=== PATIENT | female | born 1950 | race Caucasian/White ===

== ENCOUNTER 2023-10-29 12:45 | Emergency (ER) | payer MEDICARE, SELFPAY ==
--- NOTE | ~2023-10-29 | XR_ITS ---
Right foot Technique: AP, oblique, and lateral views were obtained. Clinical History: First digit swelling Findings: No acute fracture or dislocation is seen. There is moderate degenerative change of the firs t MTP joint. No erosive change evident. Soft tissues are unremarkable. Impression: Moderate osteoarthritis of the first MTP joint. Reviewed, dictated and finalized at location . Impression: Moderate osteoarthritis of the first MTP joint.
[2023-10-29 12:47] VITALS: BP 128/71; PULSE 93; RESP 18; TEMP 36.2; O2SAT 99
--- NOTE | 2023-10-29 13:02 | ED.EXTPRO ---
HPI - Extremity Problem General Chief complaint: Extremity Problem,Nontraumatic <Padmini Hagen PA-C - Last Filed: 10/29/23 14:11> Stated complaint: right foot swelling and pain <GRETA Leo Last Filed: 10/29/23 14:11> Time Seen by Provider: 10/29/23 12:54 <GRETA Leo Last Filed: 10/29/23 14:11> History of Present Illness HPI Narrative: 73 y/o F with PMHx of hypertension presents to the emergency department for pain and redness to her right foot for 2 days. The tenderness and redness is overlying the dorsum of the foot along the 1st MTP that extends proximally and laterally. Patient states approximately 1 week prior to her symptom onset she stubbed her right great toe. Otherwise she denies any trauma or injury. She denies fever, nausea vomiting, history of gout. She does report a remote injury to the right foot near this area that required surgery many years ago. <Padmini Hagen PA-C - Last Filed: 10/29/23 14:11> Related Data Allergies/Adverse reactions: Allergies Allergy/AdvReac Type Severity Reaction Status Date / Time No Known Allergies Allergy Mild Unverified 12/26/08 17:59 poison sheila extract Allergy Unknown Skin Verified 06/18/17 21:20 Reaction <Padmini Hagen PA-C - Last Filed: 10/29/23 14:11> Review of Systems Review of Systems: CONSTITUTIONAL: Denies fever, chills, or sweats. EYES: Denies visual changes, redness, or discharge. ENT: Denies rhinorrhea, congestion, sore throat, or otalgia. CARDIOVASCULAR: Denies chest pain, palpitations, or edema. RESPIRATORY: Denies cough or dyspnea. GASTROINTESTINAL: Denies abdominal pain, nausea, vomiting, or diarrhea. GENITOURINARY: Denies dysuria or hematuria. SKIN: Denies rash or itching. MUSCULOSKELETAL: See HPI NEUROLOGIC: Denies headache, numbness, or weakness. PSYCHIATRIC: Denies anxiety or depression. <GRETA Leo Last Filed: 10/29/23 14:11> [facility] Social History Social History: Social History Smoking status: Never smoker Second hand tobacco smoke exposure: Yes Alcohol intake: current <Padmini Hagen PA-C - Last Filed: 10/29/23 14:11> Exam Narrative: GENERAL: Well-appearing, well-nourished, and in no acute distress. HEAD: Normocephalic, atraumatic. EYES: PERRLA and EOMI. ENT: Nares clear, no rhinorrhea or epistaxis. Mucous membranes moist. NECK: Supple. CHEST: Clear to auscultation. No respiratory distress. HEART: Regular rate and rhythm. No murmur heard. Normal peripheral pulses. EXTREMITIES: L foot: Warmth and erythema overlying the dorsum of the 1st MTP extending proximally 0.5 cm proximally and 2 cm medially. Minimal active range of motion 1st toe but full passive passive range of motion of 1st toe w/o pain. Sensation intact. Cap refill less than 2. DP pulse 2 +. SKIN: Warm, dry, no rash. NEURO: No focal deficits. Alert and oriented x3 <Padmini Hagen PA-C - Last Filed: 10/29/23 14:11> Course [employer] REPAIRER/PA Physician Supervision I agree with midlevel documentation; I performed the medical decision making component of this evaluation. <Liv Molina MD - Last Filed: 10/29/23 18:15> Vital Signs Vital signs: Vital Signs Temperature 97.1 F L 10/29/23 12:47 Pulse Rate 93 10/29/23 12:47 Respiratory Rate 18 10/29/23 12:47 Blood Pressure 128/71 10/29/23 12:47 Pulse Oximetry 99 10/29/23 12:47 Oxygen Delivery Room Air 10/29/23 12:47 Temperature 97.1 F L 10/29/23 12:47 Pulse Rate 93 10/29/23 12:47 Respiratory Rate 18 10/29/23 12:47 Blood Pressure 128/71 10/29/23 12:47 Pulse Oximetry 99 10/29/23 12:47 Oxygen Delivery Room Air 10/29/23 12:47 <Padmini Hagen PA-C - Last Filed: 10/29/23 14:11> Vital Signs Temperature 97.1 F L 10/29/23 12:47 Pulse Rate 93 10/29/23 12:47 Respiratory Rate 18 10/29/23 12:47 Blood Pressure 1
[2023-10-29 13:40] LABS: Basophils Percent Auto 0.4 % (0.2-1.2); Eosinophils Percent Auto 0.6 % (0-4.4); Hematocrit 41.2 % (37.0-47.0); Hemoglobin 14.3 g/dL (12.0-15.0); Immature Granulocyte Absolute 0.01 K/mm3 (0.00-0.031); Immature Granulocyte Percent A 0.1 % (0-0.5); Lymphocytes Absolute Auto 1.21 K/mm3 (0.9-3.2); Mean Corpuscular HGB Conc 34.7 g/dl (32-36); Mean Corpuscular Hemoglobin 33.7 pg (26-34); Mean Corpuscular Volume 97.2 fl (80-100); Mean Platelet Volume 9.9 fl (7.4-10.4); Monocytes Absolute Auto 0.7 K/mm3 (0.1-0.6); Monocytes Percent Auto 9.3 % (2.6-8.5); Neutrophils Absolute Auto 5.2 K/mm3 (1.3-6.7); Neutrophils Percent Auto 72.6 % (45.5-73.1); Platelet Count Result 248 k/mm3 (150-375); Red Blood Count 4.24 M/mm3 (4.2-5.4); White Blood Count 7.1 K/mm3 (4.5-10.0)
[2023-10-29 13:55] LABS: Anion Gap 10 mmol/L (4-12); Blood Urea Nitrogen 21 mg/dL (7-17); Calcium 9.4 mg/dL (8.4-10.2); Carbon Dioxide 24 mmol/L (22-30); Chloride 105 mmol/L (98-107); Estimated CRCL calculation 47 ml/min; Estimated Glomerular Filt Rate > 60; Glucose 100 mg/dL (65-110); Sodium 139 mmol/L (137-145)
[2023-10-29 13:56] LABS: Uric Acid 5.7 mg/dL (2.5-7.5)
[2023-10-29] MEDS: CEPHALEXIN 500 MG CAPSULE PO (14:24)
[2023-10-29] MEDS: predniSONE 20 MG TABLET 40 MG PO (14:24)
== END 2023-10-29 14:34 | disposition home or self-care (01) ==
PROVIDERS: Emergency Provider Physician Assistant; PCP Physician Assistant
DX: M10.9 Gout, unspecified (principal)
CPT/HCPCS: 36415; 73630; 80048; 84550; 85025; 99283; A9270; J7512